=== PATIENT | female | born 1960 | race Caucasian/White ===

== ENCOUNTER 2020-09-05 08:08 | Day surgery (SDC) | payer BC ==
[2020-09-01 13:10] VITALS: BMI 32.5
[~2020-09-05 08:08] MED LIST: ACETAMINOPHEN TAB 500 MG TAB PO PRN; DEXAMETHASONE SOD PHOSPHATE 4 MG/ML 1 ML VIAL IV ONE; HEPARIN SODIUM,PORCINE 5,000 UNIT/ML 1 ML VIAL SQ PRN; HYDROmorphone 0.5 MG/0.5 ML SYRINGE IVP PRN; MIDAZOLAM 2 MG/2 ML VIAL IV PRN; ONDANSETRON 4 MG/2 ML VIAL IVP ONE; Pre Op ABX Message 1 EACH MISC MISCELLANE ONE; fentaNYL (PF) 50 MCG/ML 2 ML AMP IV PRN
--- NOTE | 2020-09-05 08:11 | P.GSHP ---
History of Present Illness H&P Date: 09/05/20 Chief Complaint: Scalp cyst 60-year-old female seen in the office in June. Patient has complaints of a bump on the posterior aspect of her scalp. Increasing in size. Mild pain at times. No prior biopsies. No drainage. Past Medical History Past Medical History: Thyroid Disorder Additional Past Medical History / Comment(s): cyst scalp, recent bx neck cyst History of Any Multi-Drug Resistant Organisms: None Reported Past Surgical History: Section, Cholecystectomy Additional Past Surgical History / Comment(s): colonoscopy Past Anesthesia/Blood Transfusion Reactions: Postoperative Nausea & Vomiting (PONV) Additional Past Anesthesia/Blood Transfusion Reaction / Comment(s): after csection Smoking Status: Former smoker Medications and Allergies Home Medications Medication Instructions Recorded Confirmed Type Levothyroxine Sodium [Synthroid] 50 mcg PO DAILY 09/01/20 09/01/20 History Allergies Allergy/AdvReac Type Severity Reaction Status Date / Time hydrocodone [From Vicodin] Allergy Itching Verified 09/01/20 13:02 Surgical - Exam Physical exam: General: Well-developed, well-nourished HEENT: 3 x 3 cm scalp cyst posterior midline, sclerae nonicteric Abdomen: Nontender, nondistended Extremities: No edema Neuro: Alert and oriented Assessment and Plan (1) Scalp cyst Narrative/Plan: Will proceed with excision scalp cyst at this time. Risks of bleeding, infection, recurrence reviewed. She understands and wishes to proceed. Current Visit: Yes Status: Acute Code(s): L72.9 - FOLLICULAR CYST OF THE SKIN AND SUBCUTANEOUS TISSUE, UNSP SNOMED Code(s): 055472566
[2020-09-05 08:42] VITALS: TEMP 97.4
[2020-09-05] MEDS: LACTATED RINGERS 1,000 ML IV SCH ×2 (08:50→09:55)
[2020-09-05] MEDS ORDERED: LIDOCAINE 1% (10MG/ML) FOR IV START INTRADERMA ONE (08:50)
[2020-09-05] MEDS ORDERED: fentaNYL (PF) 50 MCG/ML 2 ML AMP ONE (09:50)
[2020-09-05] MEDS ORDERED: LIDOCAINE 1% INJ 10MG/ML (20 ML MDV) ONE (09:50)
[2020-09-05] MEDS ORDERED: PROPOFOL 10 MG/ML 20 ML VIAL IV ONE (09:50)
[2020-09-05] MEDS ORDERED: NALOXONE 0.4 MG/ML 1 ML VIAL IV PRN (10:31)
[2020-09-05] MEDS ORDERED: ACETAMINOPHEN TAB 325 MG TAB PO PRN (10:31)
--- NOTE | 2020-09-05 10:34 | P.OP ---
Date of Procedure: 09/05/20 Procedure(s) Performed: PREOPERATIVE DIAGNOSIS: Scalp cyst POSTOPERATIVE DIAGNOSIS: Same PROCEDURE: Excision scalp cyst SURGEON: Patience EBL: 2 mL ANESTHESIA: Gen. COMPLICATIONS: None OPERATIVE PROCEDURE: Patient placed in the left decubitus position. The cyst present in the posterior scalp was prepped and draped sterilely. An elliptical incision was made removing a portion of the skin overlying the cyst. The cyst was then easily removed using blunt dissection. This measured 3.2 x 3.0 cm. His was sent to pathology. Skin incision closed using 4-0 nylon sutures. Bacitracin applied. DISPOSITION: Stable to recovery room
[2020-09-05 11:09] VITALS: RESP 16
[2020-09-05 11:46] VITALS: BP 129/82; PULSE 59
== END 2020-09-05 12:04 | disposition home or self-care (01) ==
LOC: OR 08:08
PROVIDERS: ATTEND Surgery
DX: L72.0 Epidermal cyst (principal); E07.9 Disorder of thyroid, unspecified; Z87.2 Personal history of diseases of the skin and subcutaneous tissue; Z98.890 Other specified postprocedural states; Z90.49 Acquired absence of other specified parts of digestive tract; Z91.89 Other specified personal risk factors, not elsewhere classified; Z87.891 Personal history of nicotine dependence; Z79.890 Hormone replacement therapy; Z88.5 Allergy status to narcotic agent
CPT/HCPCS: 88304; 11426; J1644; J1100; J2405; J2001; J3010; J2704

== ENCOUNTER → 2020-10-14 | Outpatient (CLI) | payer BC ==
--- NOTE | 2020-10-17 15:43 | PE ---
Nuclear medicine PET/CT HISTORY: Squamous cell carcinoma, head and neck carcinoma, initial Patient received 13.8 mCi F-18 FDG intravenously delayed scanning was performed from skull base to th e mid thighs. Localization and attenuation correction CT scan was performed. Small iufjr-re-uhsq imag ing also obtained through the head and neck. No comparisons Chest and neck: There is some asymmetric uptake present along the pharyngeal mucosal space greater on the right than on the left with SUV 6.4, there is associated adenopathy present in the submandibular region on the right extending from the level of the hyoid inferiorly to the level of the true and fa lse cords, there is associated hypermetabolic uptake, SUV 15.9. No supraclavicular adenopathy or upta ke evident. The lungs show 4 mm nodule in the right upper lobe, axial image 98, there is some atelectatic change or scarring present medially, there is no pleural or pericardial effusion. There is no suspicious upt ayesha. ABDOMEN: No evident liver mass or suspicious uptake, patient is post cholecystectomy. No adrenal mass or retroperitoneal adenopathy. Uptake along the bowel is likely physiologic. No pelvic adenopathy or free fluid. Osseous structures show no suspicious uptake. Facet arthropathy changes are present at the lower lumb ar spine. Uptake along the origin of the hamstring musculature may be due to strain or partial tear. IMPRESSION: Findings consistent with patient's history of head neck carcinoma
== END | disposition home or self-care (01) ==
LOC: RADPETMAIN 15:20
PROVIDERS: ATTEND Otolaryngology
DX: C76.0 Malignant neoplasm of head, face and neck (principal)
CPT/HCPCS: 78815; A9552

== ENCOUNTER → 2020-11-25 | Outpatient (CLI) | payer BC ==
--- NOTE | 2020-11-25 16:06 | CT ---
EXAMINATION TYPE: CT soft tissue neck w con DATE OF EXAM: 11/25/2020 COMPARISON: Head CT 10/14/2020. HISTORY: Malignant neoplasm of tonsil. CT DLP: 666 mGycm CONTRAST: Patient injected with 100 mL of Isovue M300. TECHNIQUE: Axial images at 3 mm thick sections. Reconstructed images in the coronal plane and sagitt al plane are reviewed. FINDINGS: Limited CT sections are obtained the lung apices. The lung apices appear clear. CT neck: The torus tubarius and fossa of Rosenmuller are normal. Rib Chopper spaces are normal. Para nasal sinuses and mastoid air cells are clear. Submandibular glands are normal. The right submandibular gland however is displaced from a large 3.9 x 3.7 cm heterogenous mass inferior to the right parotid gland. This appears to be encapsulated. Note this corresponds to the abnormal signal on the PET/CT of 10/14/2020. The hypopharynx appears within normal limits. Vocal cord level appear symmetrical. Thyroid as visualized is normal. Osseous structures are normal. IMPRESSIONS: 1. Large well-circumscribed heterogenous mass, likely a metastatic lymph node, inferior to the right parotid region corresponds to the PET CT abnormality. Primary tumor should be considered.
== END | disposition home or self-care (01) ==
LOC: RADCTMAIN 10:44
PROVIDERS: ATTEND Otolaryngology
DX: C09.9 Malignant neoplasm of tonsil, unspecified (principal)
CPT/HCPCS: 70491; Q9967

== ENCOUNTER → 2020-12-12 | Outpatient (CLI) | payer BC | END | disposition home or self-care (01) | LOC: LABWHC1 09:46 | PROVIDERS: ATTEND Otolaryngology | DX: Z01.812 Encounter for preprocedural laboratory examination (principal); Z20.822 Contact with and (suspected) exposure to COVID-19; C09.9 Malignant neoplasm of tonsil, unspecified | CPT/HCPCS: U0003; C9803; U0005 ==

== ENCOUNTER 2021-04-03 10:16 | Emergency (ER) | payer BC ==
[2021-04-03] MEDS ORDERED: ACETAMINOPHEN ORAL SUSP 160 MG/5 ML CUP PO ONE ×2 (15:59→21:13)
[2021-04-03] MEDS ORDERED: SODIUM CHLORIDE 0.9% 1,000 ML IV SCH (16:00)
--- NOTE | 2021-04-03 16:02 | ED ---
General Adult HPI - General Chief complaint: Fever Stated complaint: Cancer pt, Fever sent from [facility] Time Seen by Provider: 04/03/21 15:18 Source: patient, family, RN notes reviewed Mode of arrival: wheelchair Limitations: no limitations - History of Present Illness Initial comments: Patient is a pleasant 60-year-old female with history of throat cancer presenting for fever. Onset of symptoms was this morning. Patient did have some mild chills last night. Patient does have sore throat however is undergoing radiation therapy and has extreme status with it. Patient does admit is somewhat worse easily. Patient has fatigue and myalgias. Patient has minimal cough or that is fairly chronic. No abdominal pain. No urinary symptoms. - Related Data Home Medications Medication Instructions Recorded Confirmed Levothyroxine Sodium [Synthroid] 50 mcg PO DAILY 09/01/20 03/31/21 Fluconazole [Diflucan] 100 mg PO DAILY 03/31/21 03/31/21 OLANZapine [ZyPREXA] 2.5 mg PO HS 03/31/21 03/31/21 Omeprazole [PriLOSEC] 40 mg PO DAILY 03/31/21 03/31/21 ondansetron HCL [Zofran] 8 mg PO Q8HR PRN 03/31/21 03/31/21 Previous Rx's Medication Instructions Recorded Fluconazole [Diflucan] 100 mg PO DAILY #7 tablet 04/03/21 Allergies Allergy/AdvReac Type Severity Reaction Status Date / Time hydrocodone [From Vicodin] Allergy Itching Verified 04/03/21 12:37 Review of Systems ROS Statement: Those systems with pertinent positive or pertinent negative responses have been documented in the HPI. ROS Other: All systems not noted in ROS Statement are negative. Constitutional: Reports: fever, chills Eyes: Denies: eye pain ENT: Reports: throat pain. Denies: ear pain Respiratory: Reports: cough. Denies: dyspnea Cardiovascular: Denies: chest pain Endocrine: Reports: fatigue Gastrointestinal: Denies: abdominal pain Genitourinary: Denies: dysuria Musculoskeletal: Denies: back pain Skin: Denies: rash Neurological: Reports: headache. Denies: weakness Past Medical History Past Medical History: Cancer, Thyroid Disorder Additional Past Medical History / Comment(s): recent bx neck cyst , SQUAMOUS CANCER OF NECK, RIGHT TONSIL, History of Any Multi-Drug Resistant Organisms: None Reported Past Surgical History: Section, Cholecystectomy Additional Past Surgical History / Comment(s): colonoscopy, LUMP REMOVED FROM NECK FOR CANCER , RIGHT TONSIL REMOVED AND LYMPH NODE REMOVED, UTERINE ABLATION Past Anesthesia/Blood Transfusion Reactions: Postoperative Nausea & Vomiting (PONV) Additional Past Anesthesia/Blood Transfusion Reaction / Comment(s): after csection Past Psychological History: No Psychological Hx Reported Smoking Status: Former smoker Past Alcohol Use History: None Reported Past Drug Use History: None Reported - Past Family History Father Family Medical History: Cancer General Exam Limitations: no limitations General appearance: alert, in no apparent distress Head exam: Present: normocephalic Eye exam: Present: normal appearance, PERRL ENT exam: Present: other (Pharyngeal erythema, more so on the right side. Minimal swelling and mild white discoloration.) Neck exam: Present: other (Right-sided erythema consistent with patient's history of radiation) Respiratory exam: Present: normal lung sounds bilaterally Cardiovascular Exam: Present: regular rate, normal rhythm GI/Abdominal exam: Present: soft. Absent: tenderness Extremities exam: Present: normal inspection Neurological exam: Present: alert, oriented X3, CN II-XII intact. Absent: motor sensory deficit Psychiatric exam: Present: normal affect, normal mood Skin exam: Present: normal color Course Vital Signs 04/03/21 04/03/21 12:37 18:10 Temperature 102 F H 99.2 F Pulse Rate 103 H 85 Respiratory 18 18 Rate Blood Pressure 140/80 125/66 O2 Sat by Pulse 98 98 Oximetry EKG Findings - EKG Comments: EKG Findings:: Sinus rhythm rate of 91. FL 166. QRS 80. QT 346. QTc 425. Normal axis. Normal QRS. No acute ST change. Medical Decision Making - Medical Decision Making Patient reevaluated and updated. Patient case was discussed with Dr. robert with oncology who agrees of monoclonal antibodies and discharge. Patient will be covered with additional Diflucan for possible thrush. Patient is advised close follow-up and to return for worsening symptoms. - Lab Data Result diagrams: 04/03/21 17:33 04/03/21 17:33 Lab Results 04/03/21 04/03/21 04/03/21 Range/Units 16:46 16:46 16:46 WBC (3.8-10.6) k/uL RBC (3.80-5.40) m/uL Hgb (11.4-16.0) gm/dL Hct (34.0-46.0) % MCV (80.0-100.0) fL MCH (25.0-35.0) pg MCHC (31.0-37.0) g/dL RDW (11.5-15.5) % Plt Count (150-450) k/uL MPV Neutrophils % Neutrophils % (Manual) % Band Neuts % (Manual) % Lymphocytes % Lymphocytes % (Manual) % Monocytes % Monocytes % (Manual) % Eosinophils % Eosinophils % (Manual) % Basophils % Basophils % (Manual) % Neutrophils # Neutrophils # (Manual) (1.3-7.7) k/uL Lymphocytes # Lymphocytes # (Manual) (1.0-4.8) k/uL Monocytes # Monocytes # (Manual) (0-1.0) k/uL Eosinophils # Eosinophils # (Manual) (0-0.7) k/uL Basophils # Basophils # (Manual) (0-0.2) k/uL Nucleated RBCs (0-0) /100 WBC Manual Slide Review Reactive Lymphocytes PT (9.0-12.0) sec INR (<1.2) APTT (22.0-30.0) sec Sodium (137-145) mmol/L Potassium (3.5-5.1) mmol/L Chloride (98-107) mmol/L Carbon Dioxide (22-30) mmol/L Anion Gap mmol/L BUN (7-17) mg/dL Creatinine (0.52-1.04) mg/dL Est GFR (CKD-EPI)AfAm (>60 ml/min/1.73 sqM) Est GFR (CKD-EPI)NonAf (>60 ml/min/1.73 sqM) Glucose (74-99) mg/dL Plasma Lactic Acid Norman (0.7-2.0) mmol/L Calcium (8.4-10.2) mg/dL Total Bilirubin (0.2-1.3) mg/dL AST (14-36) U/L ALT (4-34) U/L Alkaline Phosphatase (38-126) U/L Total Protein (6.3-8.2) g/dL Albumin (3.5-5.0) g/dL Urine Color Urine Appearance (Clear) Urine pH (5.0-8.0) Ur Specific [place] (1.001-1.035) Urine Protein (Negative) Urine Glucose (UA) (Negative) Urine Ketones (Negative) Urine Blood (Negative) Urine Nitrite (Negative) Urine Bilirubin (Negative) Urine Urobilinogen (<2.0) mg/dL Ur Leukocyte Esterase (Negative) Urine RBC (0-5) /hpf Urine WBC (0-5) /hpf Hyaline Casts (0-2) /lpf Urine Mucus (None) /hpf Coronavirus (PCR) Detected A (Not Detectd) Influenza Type A RNA Not Detected (Not Detectd) Influenza Type B (PCR) Not Detected (Not Detectd) Group A Strep Rapid Negative (Negative) 04/03/21 04/03/21 04/03/21 Range/Units 17:33 17:33 17:33 WBC 1.7 L (3.8-10.6) k/uL RBC 3.18 L (3.80-5.40) m/uL Hgb 9.7 L (11.4-16.0) gm/dL Hct 29.1 L (34.0-46.0) % MCV 91.5 (80.0-100.0) fL MCH 30.5 (25.0-35.0) pg MCHC 33.4 (31.0-37.0) g/dL RDW 13.9 (11.5-15.5) % Plt Count 267 (150-450) k/uL MPV 8.8 Neutrophils % Not Reportable Neutrophils % (Manual) 57 % Band Neuts % (Manual) 4 % Lymphocytes % Not Reportable Lymphocytes % (Manual) 24 % Monocytes % Not Reportable Monocytes % (Manual) 13 % Eosinophils % Not Reportable Eosinophils % (Manual) 1 % Basophils % Not Reportable Basophils % (Manual) 1 % Neutrophils # Not Reportable Neutrophils # (Manual) 1.00 L (1.3-7.7) k/uL Lymphocytes # Not Reportable Lymphocytes # (Manual) 0.41 L (1.0-4.8) k/uL Monocytes # Not Reportable Monocytes # (Manual) 0.22 (0-1.0) k/uL Eosinophils # Not Reportable Eosinophils # (Manual) 0.02 (0-0.7) k/uL Basophils # Not Reportable Basophils # (Manual) 0.02 (0-0.2) k/uL Nucleated RBCs 0 (0-0) /100 WBC Manual Slide Review Performed Reactive Lymphocytes Present PT 11.2 (9.0-12.0) sec INR 1.1 (<1.2) APTT 23.6 (22.0-30.0) sec Sodium 132 L (137-145) mmol/L Potassium 3.7 (3.5-5.1) mmol/L Chloride 101 (98-107) mmol/L Carbon Dioxide 21 L (22-30) mmol/L Anion Gap 10 mmol/L BUN 9 (7-17) mg/dL Creatinine 0.74 (0.52-1.04) mg/dL Est GFR (CKD-EPI)AfAm >90 (>60 ml/min/1.73 sqM) Est GFR (CKD-EPI)NonAf 89 (>60 ml/min/1.73 sqM) Glucose 88 (74-99) mg/dL Plasma Lactic Acid Norman (0.7-2.0) mmol/L Calcium 8.2 L (8.4-10.2) mg/dL Total Bilirubin <0.1 L (0.2-1.3) mg/dL AST 83 H (14-36) U/L ALT 65 H (4-34) U/L Alkaline Phosphatase 60 (38-126) U/L Total Protein 5.9 L (6.3-8.2) g/dL Albumin 3.2 L (3.5-5.0) g/dL Urine Color Urine Appearance (Clear) Urine pH (5.0-8.0) Ur Specific [place] (1.001-1.035) Urine Protein (Negative) Urine Glucose (UA) (Negative) Urine Ketones (Negative) Urine Blood (Negative) Urine Nitrite (Negative) Urine Bilirubin (Negative) Urine Urobilinogen (<2.0) mg/dL Ur Leukocyte Esterase (Negative) Urine RBC (0-5) /hpf Urine WBC (0-5) /hpf Hyaline Casts (0-2) /lpf Urine Mucus (None) /hpf Coronavirus (PCR) (Not Detectd) Influenza Type A RNA (Not Detectd) Influenza Type B (PCR) (Not Detectd) Group A Strep Rapid (Negative) 04/03/21 04/03/21 Range/Units 17:33 18:10 WBC (3.8-10.6) k/uL RBC (3.80-5.40) m/uL Hgb (11.4-16.0) gm/dL Hct (34.0-46.0) % MCV (80.0-100.0) fL MCH (25.0-35.0) pg MCHC (31.0-37.0) g/dL RDW (11.5-15.5) % Plt Count (150-450) k/uL MPV Neutrophils % Neutrophils % (Manual) % Band Neuts % (Manual) % Lymphocytes % Lymphocytes % (Manual) % Monocytes % Monocytes % (Manual) % Eosinophils % Eosinophils % (Manual) % Basophils % Basophils % (Manual) % Neutrophils # Neutrophils # (Manual) (1.3-7.7) k/uL Lymphocytes # Lymphocytes # (Manual) (1.0-4.8) k/uL Monocytes # Monocytes # (Manual) (0-1.0) k/uL Eosinophils # Eosinophils # (Manual) (0-0.7) k/uL Basophils # Basophils # (Manual) (0-0.2) k/uL Nucleated RBCs (0-0) /100 WBC Manual Slide Review Reactive Lymphocytes PT (9.0-12.0) sec INR (<1.2) APTT (22.0-30.0) sec Sodium (137-145) mmol/L Potassium (3.5-5.1) mmol/L Chloride (98-107) mmol/L Carbon Dioxide (22-30) mmol/L Anion Gap mmol/L BUN (7-17) mg/dL Creatinine (0.52-1.04) mg/dL Est GFR (CKD-EPI)AfAm (>60 ml/min/1.73 sqM) Est GFR (CKD-EPI)NonAf (>60 ml/min/1.73 sqM) Glucose (74-99) mg/dL Plasma Lactic Acid Norman 0.8 (0.7-2.0) mmol/L Calcium (8.4-10.2) mg/dL Total Bilirubin (0.2-1.3) mg/dL AST (14-36) U/L ALT (4-34) U/L Alkaline Phosphatase (38-126) U/L Total Protein (6.3-8.2) g/dL Albumin (3.5-5.0) g/dL Urine Color Yellow Urine Appearance Clear (Clear) Urine pH 5.5 (5.0-8.0) Ur Specific [place] 1.013 (1.001-1.035) Urine Protein Negative (Negative) Urine Glucose (UA) Negative (Negative) Urine Ketones 3+ H (Negative) Urine Blood Negative (Negative) Urine Nitrite Negative (Negative) Urine Bilirubin Negative (Negative) Urine Urobilinogen <2.0 (<2.0) mg/dL Ur Leukocyte Esterase Small H (Negative) Urine RBC 1 (0-5) /hpf Urine WBC 3 (0-5) /hpf Hyaline Casts 4 H (0-2) /lpf Urine Mucus Occasional H (None) /hpf Coronavirus (PCR) (Not Detectd) Influenza Type A RNA (Not Detectd) Influenza Type B (PCR) (Not Detectd) Group A Strep Rapid (Negative) - Radiology Data Radiology results: image reviewed (Chest x-ray shows no acute process) Disposition Clinical Impression: COVID-19 Disposition: HOME SELF-CARE Condition: Stable Instructions (If sedation given, give patient instructions): Fever in Adults (ED), Coronavirus Disease 2019 (COVID-19) Additional Instructions: Please do follow-up with oncology and primary care physician in the next day or 2 for recheck. Prescription for Diflucan has been sent to your pharmacy. Return for difficulty breathing, not tolerating fluids, worsening symptoms or any other concerns. [id number]-[id number] Tylenol as needed. Lypb-ttz-zywlkex vitamin C, vitamin D, and seemed to help. Lnga-khl-kjrzfvo melatonin at night and may help as well. Prescriptions: Fluconazole [Diflucan] 100 mg PO DAILY #7 tablet Is patient prescribed a controlled substance at d/c from ED?: No Referrals: Daniel Sellers MD [Primary Care Provider] - 1-2 days Time of Disposition: 18:54
[2021-04-03] MEDS: SODIUM CHLORIDE 0.9% 500 ML 500 ML IV SCH (16:10)
--- NOTE | 2021-04-03 17:06 | XR ---
EXAMINATION TYPE: XR chest 2V DATE OF EXAM: 04/03/2021 COMPARISON: NONE HISTORY: Fever TECHNIQUE: 2 views FINDINGS: Heart and mediastinum are normal. Lungs are clear. Diaphragm is normal. Bony thorax appears normal. IMPRESSION: Normal chest.
[2021-04-03 17:57] LABS: HCT 29.1 % (34.0-46.0); HGB 9.7 gm/dL (11.4-16.0); MCH 30.5 pg (25.0-35.0); MCHC 33.4 g/dL (31.0-37.0); MCV 91.5 fL (80.0-100.0); Mean Platelet Volume 8.8; Platelet Count 267 k/uL (150-450); RBC 3.18 m/uL (3.80-5.40); RDW 13.9 % (11.5-15.5); WBC 1.7 k/uL (3.8-10.6)
[2021-04-03 18:07] LABS: ALT 65 U/L (4-34); AST 83 U/L (14-36); African American GFR (CKD) >90 (>60 ml/min/1.73 sqM); Albumin 3.2 g/dL (3.5-5.0); Alkaline Phosphatase 60 U/L (38-126); Anion Gap 10 mmol/L; Blood Urea Nitrogen 9 mg/dL (7-17); Calcium 8.2 mg/dL (8.4-10.2); Carbon Dioxide 21 mmol/L (22-30); Chloride 101 mmol/L (98-107); Glucose 88 mg/dL (74-99); Non-African American GFR(CKD) 89 (>60 ml/min/1.73 sqM); Potassium 3.7 mmol/L (3.5-5.1); Sodium 132 mmol/L (137-145); Total Bilirubin <0.1 mg/dL (0.2-1.3); Total Protein 5.9 g/dL (6.3-8.2)
[2021-04-03 18:10] LABS: INR 1.1 (<1.2); Partial Thromboplastin Time 23.6 sec (22.0-30.0); Prothrombin Time 11.2 sec (9.0-12.0)
[2021-04-03 18:19] LABS: Appearance,Urine Clear (Clear); Bilirubin,Urine Negative (Negative); Blood,Urine Negative (Negative); Color,Urine Yellow; Glucose,Urine (UA) Negative (Negative); Hyaline Casts,Urine 4 /lpf (0-2); Ketones,Urine 3+ (Negative); Leukocyte Esterase,Urine Small (Negative); Mucus,Urine Occasional /hpf; Nitrite,Urine Negative (Negative); PH, Urine 5.5 (5.0-8.0); Protein,Urine Negative (Negative); RBC,Urine 1 /hpf (0-5); Specific Gravity,Urine 1.013 (1.001-1.035); Urobilinogen,Urine <2.0 mg/dL (<2.0); WBC,Urine 3 /hpf (0-5)
[2021-04-03 18:33] LABS: Band Neutrophils % 4 %; Basophils # (M) 0.02 k/uL (0-0.2); Eosinophils # (M) 0.02 k/uL (0-0.7); Lymphocytes # (M) 0.41 k/uL (1.0-4.8); Monocytes # (M) 0.22 k/uL (0-1.0); Neutrophils % (M) 57 %; Nucleated Red Blood Cells 0 /100 WBC (0-0); Reactive Lymphocytes Present; Total Cells Counted 100
[2021-04-03] MEDS ORDERED: CASIRIVIMAB (REGN10933) (EUA) 600 MG, IMDEVIMAB (REGN10987) (EUA) 600 MG in SODIUM CHLO... IVPB ONE (19:15)
[2021-04-03] MEDS ORDERED: SODIUM CHLORIDE 0.9% 50 ML IVPB ONE (19:15)
[2021-04-03 21:16] VITALS: BP 116/76; PULSE 72; RESP 20; TEMP 99.1
== END 2021-04-03 21:26 | disposition home or self-care (01) ==
LOC: EC 10:16
DX: U07.1 COVID-19 (principal); Z87.891 Personal history of nicotine dependence; Z88.5 Allergy status to narcotic agent; Z90.49 Acquired absence of other specified parts of digestive tract; Z79.890 Hormone replacement therapy; Z79.899 Other long term (current) drug therapy
CPT/HCPCS: 99284 ×2; 96365 ×2; 96361 ×6; 36415; 93005; 80053; 83605; 85025; 85610; 85730; 81001; 87040; 87081; 87430; 87502; 87635; 71046; M0243; Q0243

== ENCOUNTER → 2021-07-07 | Outpatient (CLI) | payer BC ==
--- NOTE | 2021-07-07 14:39 | PE ---
Nuclear medicine PET/CT HISTORY: CO 9.1, and neck cancer, subsequent Patient received 11.4 mCi F-18 FDG intravenously in delayed scanning was performed from the head [facility] [place]. Small aglqk-xy-ends images obtained through the head and neck. Correlation prior exam PET/CT dated 10/14/2020 Head and neck: The large mass in the right neck is no longer seen, surgical clips are present at this level. No residual suspicious hypermetabolic uptake at this level. Along the region of the tonsillar pillar on the right there is also marked improvement of uptake. No suspicious uptake evident. No sandro dent adenopathy. CHEST: No mediastinal, axillary, or hilar adenopathy. No suspicious lung mass. Nodule seen on prior e xam within the right lung is stable and of questionable clinical significance. No pleural or pericard ial effusion. ABDOMEN: Cystic focus within the right lobe of the liver towards the anterior aspect is seen in is li anand cystic, shows no associated uptake. There is no retroperitoneal adenopathy or ascites. No pelvic adenopathy. Osseous structures are stable IMPRESSION: Marked improvement in patient's PET/CT as compared to prior.
== END | disposition home or self-care (01) ==
LOC: RADPETMAIN 07:24
PROVIDERS: ATTEND Radiology Radiation Oncology
DX: C09.1 Malignant neoplasm of tonsillar pillar (anterior) (posterior) (principal); C76.0 Malignant neoplasm of head, face and neck
CPT/HCPCS: 78815; A9552

== ENCOUNTER 2022-09-04 10:27 | Day surgery (SDC) | payer BC ==
[2022-09-04] MEDS: LACTATED RINGERS 1,000 ML IV SCH ×2 (10:57→11:27)
[2022-09-04 10:59] VITALS: RESP 16; TEMP 97.8
[2022-09-04] MEDS ORDERED: PROPOFOL 10 MG/ML 20 ML VIAL IV ONE (11:29)
--- NOTE | 2022-09-04 11:47 | P.PCN ---
Date of Procedure: 09/04/22 Procedure(s) Performed: BRIEF HISTORY: Patient is a 62-year-old pleasant female scheduled for an elective colonoscopy as a part of screening for colon cancer. PROCEDURE PERFORMED: Colonoscopy with snare polypectomy. PREOPERATIVE DIAGNOSIS: Screening for colon cancer. IV sedation per Anesthesia. PROCEDURE: After informed consent was obtained, the patient, was brought into the endoscopy unit. IV sedation was administered by Anesthesia under continuous monitoring. Digital rectal examination was normal. Initially the Olympus CF-160 flexible video colonoscope was then inserted in the rectum, gradually advanced into the cecum without any difficulty. Careful examination was performed as the scope was gradually being withdrawn. Ileocecal valve and the appendiceal orifice were visualized and appeared normal. Prep was excellent. Mucosa of the cecum, ascending colon, appeared normal. The hepatic flexure there was a 5 mm polyp removed by snare polypectomy. In the transverse colon there was a 1.5 cm flat polyp removed by snare polypectomy. Rest of the transverse colon, descending colon, sigmoid colon, and rectum appeared normal. Retroflexion was performed in the rectum and no lesions were seen. The patient tolerated the procedure well. IMPRESSION: 5 mm hepatic flexure polyp status post polypectomy 1.5 cm flat transverse colon polyp status post polypectomy RECOMMENDATIONS: Findings of this examination were discussed with the patient as well as a family. She was advised to follow with the biopsy results. The biopsy was adenoma she can have a repeat colonoscopy in 3 years..
[2022-09-04 12:09] VITALS: BP 123/79; PULSE 56
== END 2022-09-04 12:22 | disposition home or self-care (01) ==
LOC: ORWHC2ENDO 10:27
PROVIDERS: ATTEND Internal Medicine Gastroenterology
DX: Z12.11 Encounter for screening for malignant neoplasm of colon (principal); D12.3 Benign neoplasm of transverse colon; E03.9 Hypothyroidism, unspecified; K21.9 Gastro-esophageal reflux disease without esophagitis; Z98.51 Tubal ligation status; Z90.49 Acquired absence of other specified parts of digestive tract; Z79.899 Other long term (current) drug therapy
CPT/HCPCS: 88305; 45385; J2704